=== PATIENT | male | born 1950 | race Caucasian/White ===

== ENCOUNTER → 2020-10-18 | Outpatient (CLI) | payer OTHER | LOC: SJCVCIMAG 09:46 | PROVIDERS: ATTEND Internal Medicine | DX: I08.8 Other rheumatic multiple valve diseases (principal); I11.0 Hypertensive heart disease with heart failure; I50.32 Chronic diastolic (congestive) heart failure; E78.5 Hyperlipidemia, unspecified; R06.02 Shortness of breath; Z95.3 Presence of xenogenic heart valve; Z88.0 Allergy status to penicillin; Z79.82 Long term (current) use of aspirin; Z79.899 Other long term (current) drug therapy; Z87.891 Personal history of nicotine dependence; Z82.49 Family history of ischemic heart disease and other diseases of the circulatory system ==

== ENCOUNTER → 2020-11-12 | Outpatient (CLI) | payer OTHER ==
[~2020-11-12] VITALS: Ht 175.3 cm; Wt 89.8 kg
[~2020-11-12] MED LIST: ECOTRIN325 MG PO; LOPRESSOR50 MG PO; NORVASC5 MG PO; POTASSIUM20 PO; PROTONIX 20 MG20 MG PO; TORSEMIDE20 MG PO; ZESTRIL40 MG PO
[2020-11-12 07:26] VITALS: BP 145/48
[2020-11-12 08:17] LABS: HEMATOCRIT 45.5 % (42.0-52.0); HEMOGLOBIN 15.5 gm/dL (14.0-18.0); MCH 29.4 pg (26.0-34.0); MCV 86.5 fL (80.0-100.0); RBC 5.26 mil/uL (4.50-6.00); RDW 13.4 % (10.5-14.5); WBC 7.2 thou/uL (4.0-11.0)
[2020-11-12 08:23] LABS: CALCIUM 8.5 mg/dL (8.5-10.1); CREATININE 1.5 mg/dL (0.7-1.3); POTASSIUM 4.1 mmol/L (3.5-5.1)
--- NOTE | 2020-11-12 09:47 | CATHLAB ---
[facility] [place] [address] INVASIVE PROCEDURE REPORT Name: OMAR TOLEDO Room #: REG [facility] Olivia.#: [id number] Admission: 11/12/20 Attend Phys: Aiden Hurtado MD, Discharge: Date of : 50 Report #: [id number] THIS REPORT FOR: cc: Ruth Rebollar MD, Avan D. MD Lundgren, Craig H. MD [facility] ~ APPROVED REPORT Study performed: 11/12/2020 07:35:21 Patient Details Patient Status: Out-Patient Room #: The patient is a 69 year-old male Event Personnel Aiden Hurtado Proposition Player, Jared Ruano RTR Monitor, Deana Sheffield RTR ScrubDillon Marie RN promotions producer Performed Art Access - R femoral artery* Left Heart Cath w/or w/o Coronaries [id number] [facility] Hemostasis w/ Mynx 85800 Initial Mod Sed Same Phys/QHP Gr5y [id number] 03278 Mod Sed Same Phys/QHP Ea [id number] Indication Valvular heart disease Previous Procedures/Diagnoses Previous Valve Surgery Procedure Narrative The patient was brought electively to the Cardiac Catheterization Laboratory and was prepped and draped in a sterile manner. The Right Groin^ was infiltrated with 1% Lidocaine subcutaneous anesthesia. A PINNACLE 6FR Sheath #[id number] sheath was inserted into the RFA^. Coronary angiography was performed using coronary diagnostic catheters. The right coronary system was accessed and visualized with a JR4 catheter. The left coronary system was accessed and visualized with a JL4 catheter. The left ventricle was accessed and visualized with a PIGTAIL catheter. Left ventricular/Aortic Valve gradient assessed via catheter pullback. Closure device was deployed with a 6 Fr MYNXGRIP 6/7F #[id number]. Hemostasis was obtained with manual pressure following sheath removal without any complications. The patient tolerated the procedure well and there were no complications [facility] [employer] [place] [address] INVASIVE PROCEDURE REPORT Name: OMAR TOLEDO Room #: REG [facility]#: [id number] Admission: 11/12/20 Attend Phys: Aiden Hurtado, Discharge: Date of : 50 Report #: [id number] associated with the procedure. There was no hematoma. An ISVA cine film was obtained. Intraoperative Conscious Sedation Sedation start time: 840 Case end Time: 914 Fentanyl 50 mcg Fluoro Time: 3.00 minutes Dose: DAP 6468.40 cGycm2 925 mGy Contrast Type and Amount: Visipaque 125 ml Coronary Angiography The patient's coronary anatomy is right dominant. Diagnostic Cath Left Main Normal left main LAD Moderate fairly long tubular stenosis involving the proximal LAD with a discrete proximal 75% stenosis followed by a 75% stenosis at the second diagonal branch Diagonal 1 Small first diagonal, angiographically normal Diagonal 2 Small to moderate second diagonal, angiographically normal Circumflex Moderate size circumflex, mild 10-20% proximal plaquing OM1 Single bifurcating marginal branch, angiographically normal Right Coronary Dominant right coronary with scattered 20-30% proximal and mid vessel plaquing R PDA Small, normal posterior descending RPLV Moderate posterior lateral branch, angiographically normal Ramus Large ramus branch, normal Left Ventriculography The left ventricle is mildly dilated in size with normal contractility. The left ventricular ejection fraction is estimated to be 50%. Left ventricular wall motion abnormalities are not present. Probable severe aortic insufficiency. EF 50% Hemodynamics The aortic pressure is 132/39 mmHg with a mean of 70 mmHg. The left ventricular pressure is 135/8 mmHg with a mean of mmHg. The left ventricular end diastolic pressure is 25 mmHg. Pullback from the left ventricle to the aorta revealed a mm gradient across the aortic valve. [facility] [address] [place] [address] INVASIVE PROCEDURE REPORT Name: OMAR TOLEDO Room #: REG [facility]#: [id number] Admission: 11/12/20 Attend Phys: Aiden Hurtado, Discharge: Date of : 50 Report #: [id number] Conclusion 1. Severe aortic insufficiency; nonstenotic surgically placed bioprosthetic valve. Dilated left ventricle with mild LV dysfunction. EF 50% 2. Normal left main 3. Sequential 70-75% proximal LAD stenoses 4. Minimal plaquing in a nondominant circumflex 5. Mild 20-30% proximal and mid right coronary plaquing. Right coronary dominant. <ELECTRONICALLY SIGNED> By: Aiden Hurtado MD, [facility] 11/12/20945 5 5 Aiden Hurtado MD, [facility] /INF
--- NOTE | 2020-11-12 10:22 | TEE ---
[facility] [place] [address] TRANSESOPHAGEAL ECHOCARDIOGRAM Name: OMAR TOLEDO Room #: REG [facility]#: [id number] Admission: 11/12/20 Attend Phys: Aiden Hurtado MD, Discharge: Date of : 50 Report #: [id number] THIS REPORT FOR: cc: Ruth Rebollar MD, Avan D. MD Lundgren, Craig H. MD [facility] ~ APPROVED REPORT Study performed: 11/12/2020 08:00:55 EXAM: Comprehensive 2D, Doppler, and color-flow Echocardiogram Patient Location: Out-Patient Room #: *9 Status: routine BSA: 2.06 HR: 64 bpm BP: 161/53 mmHg Rhythm: NSR Other Information Study Quality: Excellent Indications Aortic Valve Disease Echo Enhancing Agent Indication: Rule out Shunt Agent(s) / Amount(s) Used: Agitated Saline 7 cc Procedure After obtaining informed consent, patient underwent transesophageal echo in the [employer]. Type of Sedation : Conscious Sedation Sedation was administered by Nurse. Sedation start time: 817 Case end Time: 827 Sedation was achieved intravenously with: Versed (4 mg) Fentanyl (50 mcg) Transesophageal probe was inserted and advanced into esophagus without difficulty by Aiden Hurtado MD. Echo enhancement indication: R/O Septal defect. Echo enhancement agent administered: Agitated Saline The ANU was performed without complications. Throughout the procedure, the blood pressure, pulse oximetry, cardiac [facility] [address] [place] [address] TRANSESOPHAGEAL ECHOCARDIOGRAM Name: OMAR TOLEDO Room #: REG [facility].#: [id number] Admission: 11/12/20 Attend Phys: Aiden Hurtado, Discharge: Date of : 50 Report #: [id number] rhythm, and rate were monitored. The patient tolerated the procedure without adverse effects. Recovery from conscious sedation was uneventful and vital signs were stable. Left Ventricle Left ventricle is borderline dilated. There is normal LV segmental wall motion. There is normal left ventricular wall thickness. The left ventricular systolic function is at the lower limits of normal LVEF is 50%. Right Ventricle The right ventricle is normal size. The right ventricular systolic function is normal. Atria Left atrium is dilated. No thrombus is visualized in the left atrium or appendage. No shunting by contrast bubble injection The right atrium size is normal. Aortic Valve Stentless bioprosthetic aortic valve is present. Mildly calcified leaflets Severe aortic regurgitation. There is no aortic valvular stenosis. Mitral Valve The mitral valve is normal in structure. Mild mitral regurgitation. No evidence of mitral valve stenosis. Tricuspid Valve The tricuspid valve is normal in structure. Mild tricuspid regurgitation. Pulmonic Valve The pulmonary valve is normal in structure. There is no pulmonic valvular regurgitation. Great Vessels The aortic root is normal in size. IVC is normal in size and collapses >50% with inspiration. Pericardium There is no pericardial effusion. <Conclusion> The left ventricular systolic function is at the lower limits of [facility] [address] [place] [address] TRANSESOPHAGEAL ECHOCARDIOGRAM Name: OMAR TOLEDO Room #: REG [facility].#: [id number] Admission: 11/12/20 Attend Phys: Aiden Hurtado, Discharge: Date of : 50 Report #: [id number] normal Left ventricle is borderline dilated. There is normal LV segmental wall motion. LVEF is 50%. Left atrium is dilated. No thrombus is visualized in the left atrium or appendage. No shunting by contrast bubble injection Stentless bioprosthetic aortic valve is present. Mildly calcified leaflets Severe aortic regurgitation, no stenosis. The mitral valve is normal in structure. Mild mitral regurgitation. There is no pericardial effusion. <ELECTRONICALLY SIGNED> By: Aiden Hurtado MD, [facility] 11/12/20 1022 1022 102 Aiden Hurtado MD, FAC /INF
== END | disposition home or self-care (01) ==
LOC: CATH 06:22
PROVIDERS: ATTEND Internal Medicine
DX: I25.10 Atherosclerotic heart disease of native coronary artery without angina pectoris (principal); I08.3 Combined rheumatic disorders of mitral, aortic and tricuspid valves; I10 Essential (primary) hypertension; E78.5 Hyperlipidemia, unspecified; K21.9 Gastro-esophageal reflux disease without esophagitis; Z98.890 Other specified postprocedural states; Z79.899 Other long term (current) drug therapy; Z98.52 Vasectomy status; Z79.01 Long term (current) use of anticoagulants; Z95.2 Presence of prosthetic heart valve; Z87.891 Personal history of nicotine dependence; Z82.49 Family history of ischemic heart disease and other diseases of the circulatory system

== ENCOUNTER → 2021-01-07 | Outpatient (CLI) | payer OTHER ==
[2021-01-07 10:11] LABS: CREATININE 1.8 mg/dL (0.7-1.3)
== END ==
LOC: ULTRA 09:12
PROVIDERS: ATTEND Internal Medicine
DX: J90 Pleural effusion, not elsewhere classified (principal); R06.02 Shortness of breath; J98.11 Atelectasis

== ENCOUNTER → 2021-03-07 | Outpatient (CLI) | payer OTHER | LOC: SJCVC 10:35 | PROVIDERS: ATTEND Internal Medicine | DX: R94.31 Abnormal electrocardiogram [ECG] [EKG] (principal); I25.10 Atherosclerotic heart disease of native coronary artery without angina pectoris; I11.0 Hypertensive heart disease with heart failure; I50.32 Chronic diastolic (congestive) heart failure; E78.5 Hyperlipidemia, unspecified; J90 Pleural effusion, not elsewhere classified; Z95.3 Presence of xenogenic heart valve; Z87.891 Personal history of nicotine dependence; Z79.82 Long term (current) use of aspirin; Z79.899 Other long term (current) drug therapy; Z88.0 Allergy status to penicillin; Z82.49 Family history of ischemic heart disease and other diseases of the circulatory system ==

== ENCOUNTER → 2021-03-19 | Outpatient (CLI) | payer OTHER ==
--- NOTE | 2021-03-31 14:31 | PFR/MVV ---
[facility] [place] [address] PULMONARY FUNCTION MVV/REPORT Name: OMAR TOLEDO Room #: REG [facility]#: [id number] Admission: 03/19/21 Attend Phys: Aiden Hurtado MD, [facility] Discharge: Date of : 50 Report #: [id number] THIS REPORT FOR: //name// >> SPIROMETRY: (BTPS) Height: 69 in cm Weight: 190 lbs kg Exam Date: 03/19/21 PRE-RX POST-RX PRED BEST %PRED BEST %PRED %CHG FVC LITERS . 4.22 . 3.11 . 74 . 3.39 . 80 . 9 FEV1 LITERS . 2.85 . 2.14 . 75 . 2.42 . 85 . 13 FEV1/FVC % . 69 . 69 . 100 . 71 . 104 . 4 PSB75-55% L/Sec . 2.61 . 1.27 . 49 . 1.18 . 45 . -7 PEF L/SEC . 8.03 . 5.47 . 68 . 4.97 . 62 . -9 FEF50/FIF50 UNITLESS . 3.87 . 1.79 . 46 . 2.22 . 57 . 24 MVV L/Min . 124 . . f 1/Min . . . >> LUNG VOLUMES: (BTPS) PRE-RX POST-RX PRED AVG %PRED AVG %PRED %CHG VC Liters . 4.22 . 4.56 . 108 . . . TLC Liters . 6.27 . 5.94 . 95 . . . RV Liters . 2.47 . 1.38 . 56 . . . RV/TLC % . 41 . 23 . 57 . . . FRC [address] Liters . 3.49 . 2.42 . 70 . . . FRC N2 Liters . 3.49 . . . . . ERV Liters . 1.44 . 0.73 . 51 . . . IC Liters . 2.87 . 3.52 . 123 . . . >> DIFFUSION: DLCO ml/Min/mmHg . 21.4 . 24.6 . 115 . . . DL Estefanía ml/Min/mmHg . 21.4 . 24.6 . 115 . . . DLCO/VA ml/Min/mmHg . 3.54 . 4.88 . 138 . . . VA Liters . 6.90 . 5.04 . 73 . . . COMMENTS: COMMENTS: >> RESISTANCE: [facility] [address] [place] [address] PULMONARY FUNCTION MVV/REPORT Name: GEORGINAOMAR GARCÍA Room #: [facility] TeresaOlivia#: [id number] Admission: 03/19/21 Attend Phys: Aiden Hurtado MD, [facility] Discharge: Date of : 50 Report #: [id number] PRE-RX PRED AVG %PRED Raw Total cmH20/L/Sec . . 5.47 . Raw Insp cmH20/L/Sec . . 3.67 . Raw Exp cmH20/L/Sec . . 5.52 . Raw cmH20/L/Sec . 1.30 . 5.37 . 415 Gaw L/Sec/cmH20 . 0.837 . 0.186 . 22 sRaw cmH20 Sec . 4.52 . 25.01 . 554 sGaw l/cmH20 Sec . 0.221 . 0.040 . 18 Vtq Liters . . 4.66 . # = OUTSIDE 95% CONFIDENCE INTERVAL CALIBRATION: PRED: 3.00 ACTUAL: EXP 3.01 INSP 3.02 [place] [place] [address] N-1804-4 >> INTERPRETATION/IMPRESSION: DATE OF SERVICE: 03/19/2021 PULMONARY FUNCTION STUDIES ATTENDING PHYSICIAN: Dr. Aiden Hurtado SPIROMETRY: FEV1 is 2.14 liters (75% predicted), FVC is 3.11 liters (74% predicted), FEV1/FVC ratio is 69%. There is a significant response to bronchodilator therapy. FEV1 increased to 2.42 liters (85% predicted, 13% change). LUNG VOLUMES: Total lung capacity is 5.94 liters (95% predicted). RV is 1.38 liters (56% predicted). Diffusing capacity is 115%. Pulmonary function studies are consistent with a mild obstructive airflow defect with a significant response to bronchodilator therapy. Diffusing capacity is normal. <ELECTRONICALLY SIGNED> By: Srinivasa Bustamante MD 03/31/21 1431 Srinivasa Bustamante MD /nt
== END ==
LOC: PUL 07:58
PROVIDERS: ATTEND Internal Medicine
DX: R06.02 Shortness of breath (principal); J90 Pleural effusion, not elsewhere classified

== ENCOUNTER → 2021-04-29 | Outpatient (CLI) | payer OTHER | LOC: RAD 12:23 | PROVIDERS: ATTEND Pediatrics | DX: J98.4 Other disorders of lung (principal); R06.02 Shortness of breath ==

== ENCOUNTER → 2021-05-27 | Outpatient (CLI) | payer OTHER | LOC: SJCVC 14:15 | PROVIDERS: ATTEND Internal Medicine | DX: R94.31 Abnormal electrocardiogram [ECG] [EKG] (principal); I50.32 Chronic diastolic (congestive) heart failure; I25.10 Atherosclerotic heart disease of native coronary artery without angina pectoris; E78.5 Hyperlipidemia, unspecified; I10 Essential (primary) hypertension; I44.7 Left bundle-branch block, unspecified; J43.9 Emphysema, unspecified; Z79.82 Long term (current) use of aspirin; Z79.899 Other long term (current) drug therapy; Z95.3 Presence of xenogenic heart valve; Z82.49 Family history of ischemic heart disease and other diseases of the circulatory system; Z87.891 Personal history of nicotine dependence; Z88.0 Allergy status to penicillin; Z72.89 Other problems related to lifestyle; Z95.1 Presence of aortocoronary bypass graft ==

== ENCOUNTER → 2021-06-04 | Outpatient (CLI) | payer OTHER ==
[2021-06-04 13:04] LABS: CREATININE 1.4 mg/dL (0.7-1.3)
== END ==
LOC: CAT 05-31 12:33
PROVIDERS: ATTEND Internal Medicine
DX: R91.1 Solitary pulmonary nodule (principal); J43.9 Emphysema, unspecified; I26.99 Other pulmonary embolism without acute cor pulmonale; N28.1 Cyst of kidney, acquired; K44.9 Diaphragmatic hernia without obstruction or gangrene; M47.814 Spondylosis without myelopathy or radiculopathy, thoracic region

== ENCOUNTER → 2021-06-04 | Outpatient (CLI) | payer OTHER | LOC: SJCVCIMAG 13:08 | PROVIDERS: ATTEND Internal Medicine | DX: I08.1 Rheumatic disorders of both mitral and tricuspid valves (principal); I11.9 Hypertensive heart disease without heart failure; I25.10 Atherosclerotic heart disease of native coronary artery without angina pectoris ==